=== PATIENT | female | born 1975 | race Caucasian/White ===

== ENCOUNTER 2019-04-13 16:37 | Emergency (ER) | payer OTHER, SELFPAY | END 2019-04-13 16:40 | disposition left against medical advice (07) | LOC: ANHED 05-07 10:14 | PROVIDERS: Emergency Provider Nurse Practitioner Family; PCP Family Medicine | DX: Z53.21 Procedure and treatment not carried out due to patient leaving prior to being seen by health care provider (principal) | CPT/HCPCS: 99199 ==

== ENCOUNTER → 2019-12-18 15:48 | Outpatient (CLI) | payer OTHER, SELFPAY ==
--- NOTE | ~2019-12-18 | MM_ITS ---
EXAMINATION: MM screening [facility] HISTORY: Screening TECHNIQUE: Craniocaudal and mediolateral oblique 3-D tomosynthesis images were obtained and synthetic 2-D images were generated. CAD analysis was submitted and interpreted. COMPARISON: Comparison to multiple prior studies sequentially, with oldest reviewed study dated 08/04. BREAST PARENCHYMAL COMPOSITION: The breasts are heterogeneously dense, which may obscure small masses . FINDINGS: There is no evidence of suspicious mass, calcification, or architectural distortion to sugg est malignancy in either breast. There has been no suspicious interval change. IMPRESSION: 1. No mammographic evidence of malignancy. 2. Recommend routine screening mammography in one year. BI-RADS Category 1: Negative Reviewed, dictated and finalized at location A.
== END ==
PROVIDERS: Visit Provider Obstetrics & Gynecology
DX: Z12.31 Encounter for screening mammogram for malignant neoplasm of breast (principal)
CPT/HCPCS: 77063; 77067

== ENCOUNTER → 2021-01-23 15:08 | Outpatient (CLI) | payer OTHER, SELFPAY ==
--- NOTE | ~2021-01-23 | MM_ITS ---
EXAMINATION: MM screening [facility] HISTORY: Screening TECHNIQUE: Craniocaudal and mediolateral oblique 3-D tomosynthesis images were obtained and synthetic 2-D images were generated. CAD analysis was submitted and interpreted. COMPARISON: Comparison to multiple prior studies sequentially, with oldest reviewed study dated 08/04. BREAST PARENCHYMAL COMPOSITION: The breasts are heterogeneously dense, which may obscure small masses . FINDINGS: There is no evidence of suspicious mass, calcification, or architectural distortion to sugg est malignancy in either breast. There has been no suspicious interval change. IMPRESSION: 1. No mammographic evidence of malignancy. 2. Recommend routine screening mammography in one year. BI-RADS Category 1: Negative Reviewed, dictated and finalized at location A.
== END ==
PROVIDERS: PCP Family Medicine; Visit Provider Obstetrics & Gynecology
DX: Z12.31 Encounter for screening mammogram for malignant neoplasm of breast (principal)
CPT/HCPCS: 77063; 77067

== ENCOUNTER → 2022-11-25 14:28 | Outpatient (CLI) | payer OTHER, SELFPAY ==
--- NOTE | ~2022-11-25 | MM_ITS ---
EXAMINATION: MM screening [facility] HISTORY: Screening TECHNIQUE: Craniocaudal and mediolateral oblique 3-D tomosynthesis images were obtained and synthetic 2-D images were generated. CAD analysis was submitted and interpreted. COMPARISON: Comparison to multiple prior studies sequentially, with oldest reviewed study dated 08/04. BREAST PARENCHYMAL COMPOSITION: The breasts are heterogeneously dense, which may obscure small masses . FINDINGS: There is a partially obscured mass in the upper outer quadrant of the left breast. There is no evidence for malignancy in the right breast. IMPRESSION: 1. Partially obscured mass in the upper outer quadrant of the left breast. 2. Routine yearly screening mammogram and regular clinical breast examination are recommended. BI-RADS Category 2: Benign finding(s). Reviewed, dictated and finalized at location A. IMPRESSION: 1. Partially obscured mass in the upper outer quadrant of the left breast. 2. Routine yearly screening mammogram and regular clinical breast examination a re recommended. BI-RADS Category 2: Benign finding(s).
== END ==
PROVIDERS: PCP Obstetrics & Gynecology; Visit Provider Obstetrics & Gynecology
DX: Z12.31 Encounter for screening mammogram for malignant neoplasm of breast (principal); N63.21 Unspecified lump in the left breast, upper outer quadrant
CPT/HCPCS: 77063; 77067

== ENCOUNTER 2023-04-22 08:30 | Emergency (ER) | payer OTHER, SELFPAY ==
--- NOTE | 2023-04-22 08:40 | ED.FEMALEGU ---
HPI - Female Genitourinary General Chief complaint: Urogenital-Female Stated complaint: urinary issue Time Seen by Provider: 04/22/23 09:16 Source: patient and RN notes reviewed Mode of arrival: ambulatory Limitations: no limitations History of Present Illness HPI Narrative: 47-year-old female presents concern for frequency, urgency, suprapubic pressure, low back pain, nausea, chills that started yesterday. She reports she has to have history of UTIs when she was younger but has not had 1 for a while. MD elicited complaint: UTI Related Data Allergies Allergy/AdvReac Type Severity Reaction Status Date / Time No Known Allergies Allergy Verified 04/22/23 08:57 Review of Systems Review of Systems: CONSTITUTIONAL: Denies malaise, sweats, or fever. Reports chills CARDIOVASCULAR: Denies chest pain, palpitations, or edema. RESPIRATORY: Denies cough or dyspnea. GASTROINTESTINAL: Denies abdominal pain, vomiting, diarrhea. Reports nausea GENITOURINARY: Reports dysuria, frequency, urgency, suprapubic pressure. Denies flank pain or hematuria. SKIN: Denies rash or itching. MUSCULOSKELETAL: Reports low back pain. Denies myalgia. All systems reviewed & are unremarkable except as noted in HPI and below PMFSH Past Medical History Medical History Abnormal Pap smear of cervix 2002 colpo benign 06/02/2048 [facility] hpv negative Screening mammogram, encounter for Vaginal delivery (10/27/04) Surgical History Surgical History History of 10/08/08 primary c/s--breech presentation History of colposcopy with cervical biopsy (12/28/01) benign Family History Family History Father Hypertension Social History Social History Smoking status: Never smoker Second hand tobacco smoke exposure: No Alcohol intake: never Substance use: never Substance use type: does not use Living arrangements: other Additional living arrangements comments: Occupation/Education: occupation Additional occupation/education comments: teacher Gender identity (if verbalized by the patient): Female Sexual Orientation (if Verbalized by the Patient): Straight or Heterosexual Comments At time of signature, agree with nursing past medical, surgical, social and family history. There is no relevant family history pertinent to the presenting complaint Exam Narrative: GENERAL: Well-appearing, well-nourished, and in no acute distress. HEAD: Normocephalic. EYES: PERRLA, conjunctivae clear. NECK: Supple. No lymphadenopathy CHEST: Clear to auscultation. No respiratory distress. HEART: Regular rate and rhythm. ABDOMEN: Soft, nontender upon palpation, nondistended, normal active bowel sounds, no palpable or pulsatile masses, no guarding. No CVA tenderness SKIN: Warm, dry, no rash. NEURO: Alert and oriented x3. PSYCH: Normal mood and affect Course Course Emergency Course: Patient is aware of diagnosis, understands and agrees to treatment plan. Anticipatory guidance given. Patient agrees to follow-up as directed and is aware of reasons to seek care at the emergency department. Portions of this record may have been created with voice recognition software Level of Care: Express Care Visit Vital Signs Vital signs: Reviewed. MDM - Female Genitourinary MDM Narrative Medical decision making narrative: Exam findings and UA show no acute concerns or changes; patient is non-toxic appearing and is in no distress. Patient is appropriate for outpatient treatment and follow-up. Differential Diagnosis Differential diagnosis: Likely urinary tract infection and cystitis Critical Care Time Critical Care Time Critical Care Time: No Discharge Plan Discharge Clinical Impression: Urinary tract infection
[2023-04-22 08:55] VITALS: BP 108/72; PULSE 104; RESP 16; TEMP 37.3; O2SAT 100
== END 2023-04-22 09:29 | disposition home or self-care (01) ==
PROVIDERS: Emergency Provider Nurse Practitioner; PCP Obstetrics & Gynecology
DX: N39.0 Urinary tract infection, site not specified (principal); B95.2 Enterococcus as the cause of diseases classified elsewhere
CPT/HCPCS: 81003; 87086; 87147; 87181; 87186; 99213; G0463

== ENCOUNTER 2023-07-24 10:50 | Emergency (ER) | payer OTHER, SELFPAY ==
[2023-07-24 11:14] VITALS: BP 113/69; PULSE 74; RESP 16; TEMP 36.7; O2SAT 100
--- NOTE | 2023-07-24 11:58 | ED.FEMALEGU ---
HPI - Female Genitourinary General Chief complaint: Urogenital-Female Stated complaint: UTI Time Seen by Provider: 07/24/23 11:54 Source: patient and RN notes reviewed Mode of arrival: ambulatory Limitations: no limitations History of Present Illness HPI Narrative: Patient presents today complaining of dysuria, frequency, and lower abdominal pressure. States symptoms woke her up last night and have been persisting today. She purchased an [id number] UTI test this morning and states it was positive. No recent antibiotic use. Related Data Allergies Allergy/AdvReac Type Severity Reaction Status Date / Time No Known Allergies Allergy Verified 07/24/23 11:35 Review of Systems Review of Systems: CONSTITUTIONAL: Denies body aches, fever, chills, or sweats. EYES: Denies visual changes, redness, or discharge. ENT: Denies rhinorrhea, congestion, sore throat, or otalgia. CARDIOVASCULAR: Denies chest pain, palpitations, or edema. RESPIRATORY: Denies cough or dyspnea. GASTROINTESTINAL: Denies abdominal pain, nausea, vomiting, or diarrhea. GENITOURINARY: Denies hematuria.+ dysuria, frequency, lower abdominal pressure SKIN: Denies rash, itching, or wounds. MUSCULOSKELETAL: Denies back pain, joint pain, or myalgia. NEUROLOGIC: Denies headache, numbness, tingling, or weakness. PSYCH: Denies depression or anxiety. [facility] Past Medical History Medical History Abnormal Pap smear of cervix 2001 colpo benign 06/02/2048 [facility] hpv negative Screening mammogram, encounter for Vaginal delivery (10/27/04) Surgical History Surgical History History of 10/08/08 primary c/s--breech presentation History of colposcopy with cervical biopsy (12/28/01) benign Family History Family History Father Hypertension Social History Social History Smoking status: Never smoker Second hand tobacco smoke exposure: No Alcohol intake: never Substance use: never Substance use type: does not use Living arrangements: other Additional living arrangements comments: Occupation/Education: occupation Additional occupation/education comments: teacher Gender identity (if verbalized by the patient): Female Sexual Orientation (if Verbalized by the Patient): Straight or Heterosexual Comments At time of signature, I have reviewed and agree with nursing past medical, surgical, social and family history unless otherwise noted. Please see nursing chart for further information. There is no relevant family history pertinent to the presenting complaint Exam Narrative: GENERAL: Well-appearing, well-nourished, and in no acute distress. HEAD: Normocephalic, atraumatic. EYES: EOMI. No redness or drainage. Conjunctivae normal. ENT: Mucous membranes pink and moist. NECK: Normal AROM. CHEST: No respiratory distress. Clear to auscultation. HEART: Regular rate and rhythm. No murmur appreciated. ABDOMEN: Soft, nondistended, normal active bowel sounds.+ lower abdominal tenderness.-CVAT EXTREMITIES: Normal range of motion. No edema. SKIN: Warm, dry, no rash. Capillary refill normal. Normal skin turgor. NEURO: No focal deficits. Alert and oriented x3. Gait steady. PSYCH: Normal affect. No signs of depression or anxiety. Course Course Level of Care: Express Care Visit Vital Signs Vital signs: Vital Signs Temperature 98.1 F 07/24/23 11:14 Pulse Rate 74 07/24/23 11:14 Respiratory Rate 16 07/24/23 11:14 Blood Pressure 113/69 07/24/23 11:14 Pulse Oximetry 100 07/24/23 11:14 Oxygen Delivery Room Air 07/24/23 11:14 Temperature 98.1 F 07/24/23 11:14 Pulse Rate 74 07/24/23 11:14 Respiratory Rate 16 07/24/23 11:14 Blood Pressure 113/69 07/24/23 1
== END 2023-07-24 12:12 | disposition home or self-care (01) ==
PROVIDERS: Emergency Provider Nurse Practitioner; PCP Family Medicine
DX: N30.00 Acute cystitis without hematuria (principal)
CPT/HCPCS: 81003; 87086; 99213; G0463

== ENCOUNTER 2023-10-01 09:06 | Emergency (ER) | payer OTHER, SELFPAY ==
--- NOTE | 2023-10-01 09:12 | ED.FEMALEGU ---
HPI - Female Genitourinary General Chief complaint: Urogenital-Female Stated complaint: UTI Time Seen by Provider: 10/01/23 09:13 Source: patient, RN notes reviewed and old records reviewed Mode of arrival: ambulatory Limitations: no limitations History of Present Illness HPI Narrative: 48-year-old female presents to the [facility] with a 2 day history of frequency, urgency and burning with urination. For the last several months has had intermittent symptoms. States that she tried hydrating and the symptoms and burning cap getting worse. Has taken Tylenol. No CVA tenderness S. Denies abdominal pain. Denies fevers, nausea or vomiting Onset (ago): day(s) (2) Related Data Home Medications Medication Instructions Recorded Confirmed norgestimate-ethinyl estradiol 1 tablet PO DAILY 10/01/23 10/01/23 0.18 mg/0.215mg/0.25mg-35 mcg(28)tablet Allergies Allergy/AdvReac Type Severity Reaction Status Date / Time No Known Allergies Allergy Verified 10/01/23 09:07 Review of Systems Review of Systems: All systems reviewed & are unremarkable except as noted in HPI and below Constitutional: Constitutional: Reports no additional constitutional complaints Eyes: Eyes: Reports no additional eye complaints ENT: Reports system reviewed and no additional complaints, except as documented Cardiovascular: Cardiovascular: Reports no additional cardiovascular complaints, Denies chest pain and Denies dyspnea Respiratory: Respiratory: Reports no additional respiratory complaints, Denies chest congestion, Denies cough and Denies dyspnea Gastrointestinal: Gastrointestinal: Reports no additional gastrointestinal complaints, Denies abdominal pain, Denies nausea and Denies vomiting Genitourinary: Genitourinary: Reports as per HPI and Reports dysuria Musculoskeletal: Musculoskeletal: Reports no additional musculoskeletal complaints Integumentary/Breasts: Skin/Breast: Reports system reviewed and no additional complaints, except as docu Neurologic: Reports system reviewed and no additional complaints, except as documented Psychiatric: Psychiatric: Reports no additional psychiatric complaints Allergic/Immunologic: Allergic/Immunologic: Reports no additional allergic/immunologic complaints PMFSH Past Medical History Medical History Abnormal Pap smear of cervix 2002 colpo benign 06/02/2048 [facility] hpv negative Screening mammogram, encounter for Vaginal delivery (10/27/04) Surgical History Surgical History History of 10/08/08 primary c/s--breech presentation History of colposcopy with cervical biopsy (12/28/01) benign Family History Family History Father Hypertension Social History Social History Smoking status: Never smoker Second hand tobacco smoke exposure: No Alcohol intake: never Substance use: never Substance use type: does not use Living arrangements: other Additional living arrangements comments: Occupation/Education: occupation Additional occupation/education comments: teacher Gender identity (if verbalized by the patient): Female Sexual Orientation (if Verbalized by the Patient): Straight or Heterosexual Comments At the time of my signature, I reviewed and agree with the nursing past medical, surgical, social, and family history. There is no relevant family history pertinent to the patient complaint. Exam Const: General: cooperative, healthy appearing, comfortable, no acute distress, well developed, alert and well nourished Nutritional Appearance: well nourished Orientation/consciousness: patient oriented x3 Limitations: no limitations HENMT: Head: normal to inspection Ears: hearing grossly normal bilaterally and external ears normal Face/Nose/Sinus: N
[2023-10-01 09:15] VITALS: BP 125/63; PULSE 84; RESP 16; TEMP 36.5; O2SAT 100
== END 2023-10-01 09:40 | disposition home or self-care (01) ==
PROVIDERS: Emergency Provider Nurse Practitioner; PCP Family Medicine
DX: N30.01 Acute cystitis with hematuria (principal); B96.20 Unspecified Escherichia coli [E. coli] as the cause of diseases classified elsewhere
CPT/HCPCS: 81003; 87077; 87086; 87088; 87186; 99213; G0463

== ENCOUNTER 2024-01-20 15:33 | Outpatient (CLI) | payer OTHER, SELFPAY ==
--- NOTE | ~2024-01-20 | MM_ITS ---
EXAMINATION: MM screening [facility] BI w [facility] HISTORY: Screening mammogram TECHNIQUE: Craniocaudal and mediolateral oblique 3-D tomosynthesis images were obtained and synthetic 2-D images were generated. CAD analysis was submitted and interpreted. COMPARISON: 11/25/2022, 01/23/2021, 12/18/2019, 08/09/2018 BREAST PARENCHYMAL COMPOSITION:Dense: The breasts are heterogeneously dense, which may obscure small masses. FINDINGS: Stable probable partially obscured upper, outer left breast mass. No suspicious mass, calci fication, or architectural distortion are identified in either breast to suggest malignancy. There edwards s been no suspicious interval change. IMPRESSION: No mammographic evidence of malignancy. Recommend routine screening mammography in one year. BI-RADS Category 2: Benign finding(s). Reviewed, dictated and finalized at location .
== END 2024-01-20 15:34 | disposition home or self-care (01) ==
LOC: MICIMG 15:33
PROVIDERS: PCP Obstetrics & Gynecology; Visit Provider Obstetrics & Gynecology
DX: Z12.31 Encounter for screening mammogram for malignant neoplasm of breast (principal)
CPT/HCPCS: 77063; 77067

== ENCOUNTER 2025-05-01 09:46 | Outpatient (CLI) | payer OTHER, SELFPAY ==
--- NOTE | ~2025-05-01 | MM_ITS ---
EXAMINATION: MM screening kylah BI w amando HISTORY: Screening TECHNIQUE: Craniocaudal and mediolateral oblique 3-D tomosynthesis images were obtained and synthetic 2-D images were generated. CAD analysis was submitted and interpreted. COMPARISON: Comparison to multiple prior studies sequentially, with oldest reviewed study dated 08/04/2017. BREAST PARENCHYMAL COMPOSITION: Dense: The breasts are heterogeneously dense, which may obscure small masses FINDINGS: There is no evidence of suspicious mass, calcification, or architectural distortion to suggest malignancy in either breast. There has been no suspicious interval change. IMPRESSION: 1. No mammographic evidence of malignancy. 2. Recommend routine screening mammography in one year. BI-RADS Category 1: Negative Reviewed, dictated and finalized at location O. T [facility]OLOGY [facility]ER
--- OUTSIDE RECORDS SUMMARY | 2025-05-01 09:50 | XMS_ITS | Data Portability ---
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 Plan of Treatment Reminders Order Date Submit Date Provider Last Modified By Organization Details Last Modified Time Details Appointments None recorded. Lab influenza virus A + B + SARS-CoV-2 (COVID19) Ag panel, rapid IA, upper respiratory specimen 2024 025 [email or web address] [facility], [address] [place] [address], [id number], 5 11:27:06 urinalysis, dipstick, auto 2024 025 [email or web address] [facility], [address] [place] [address], [phone], 5 11:27:06 culture, urine 2024 025 [facility], [address] [place] [address], [address], 5 08:04:56 Referral None recorded. Procedures None recorded. Surgeries None recorded. Imaging None recorded. Medication Orders ondansetron 8 mg disintegrat ing tablet 2024 025 [email or web address] [id number] [address], [address], At [address] [place] [address], [address], 11:27:06 Patient TargetsNo targets recorded. Patient Instructions Encounter Date Encounter Id Patient Instructions Last Modified By Organization Details Last Modified Time 10/12/2024 [id number] A healthy lifestyle: care instructions Not available 10/12/2024 11:27:06 abdominal pain: care instructions s Not available 10/12/2024 11:27:06 Thank you for visiting [facility]. We may be calling you to review your lab results or schedule a follow up appointment. The call will be through an automated system which asks you to press a natarajan to speak with one of our agents. Please be on the lookout for this call and listen to the message in its entirety. You may also view your lab results using the [employer] kassidy, available in the Kassidy Store and [employer]. First-time kassidy users will need to create an account; please note you l l need to select a login and password for the kassidy versus just using your patient portal login. Your lab results will be posted to the [employer] kassidy as soon as they r e available. Need a note to excuse you from work or school? You can submit a request online at [email or web address] We will respond to your request within 2 business days. If you have any questions regarding your visit, our Aftercare department can be reached at [phone]. Our hours are Tuesday from 8 am 11 pm or Tuesday/Tuesday from 9a 8p. Diarrhea Your Care Instructions Diarrhea is loose, watery stools (bowel movements). The exact cause is often hard to find. Sometimes diarrhea is your body's way of getting rid of what caused an upset stomach. Viruses, food poisoning, and many medicines can cause diarrhea. Some people get diarrhea in response to emotional stress, anxiety, or certain foods. Almost everyone has diarrhea now and then. It usually isn't serious, and your stools will return to normal soon. The important thing to do is replace the fluids you have lost, so you can prevent dehydration. The doctor has checked you carefully, but problems can develop later. If you notice any problems or new symptoms, get medical treatment right away. Follow-up care is a natarajan part of your treatment and safety. Be sure to make and go to all appointments, and call your doctor if you are having problems. It's also a good idea to know your test results and keep a list of the medicines you take. How can you care for yourself at home? Watch for signs of dehydration, which means your body has lost too much water. Dehydration is a serious condition and should be treated right away. Signs of dehydration are: Increasing thirst and dry eyes and mouth. Feeling faint or lightheaded. Darker urine, and a smaller amount of urine than normal. To prevent dehydration, drink plenty of fluids, enough so that your urine is light yellow or clear like water. Choose water and other caffeine-free clear liquids until you feel better. If you have kidney, heart, or liver disease and have to limit fluids, talk with your doctor before you increase the amount of fluids you drink. Begin eating small amounts of mild foods the next day, if you feel like it. Try yogurt that has live cultures of Lactobacillus. (Check the label.) Avoid spicy foods, fruits, alcohol, and caffeine until 48 hours after all symptoms are gone. Avoid chewing gum that contains sorbitol. Avoid dairy products (except for yogurt with Lactobacillus) while you have diarrhea and for 3 days after symptoms are gone. The doctor may recommend that you take qfqk-qhb-dxfstgg medicine, such as loperamide (Imodium), if you still have diarrhea after 6 hours. Read and follow all instructions on the label. Do not use this medicine if you have bloody diarrhea, a high fever, or other signs of serious illness. Call your doctor if you think you are having a problem with your medicine. When should you call for help? Call 911 anytime you think you may need emergency care. For example, call if: You passed out (lost consciousness). Your stools are maroon or very bloody. Call your doctor now or seek immediate medical care if: You are dizzy or lightheaded, or you feel like you may faint. Your stools are black and look like tar, or they have streaks of blood. You have new or worse belly pain. You have symptoms of dehydration, such as: Dry eyes and a dry mouth. Passing only a little dark urine. Feeling thirstier than usual. You have a new or higher fever. Watch closely for changes in your health, and be sure to contact your doctor if: Your diarrhea is getting worse. You see pus in the diarrhea. You are not getting better after 2 days (48 hours). Abdominal Pain Abdominal pain has many possible causes. Some aren''t serious and get better on their own in a few days. Others need more testing and treatment. If your pain continues or gets worse, you need to be rechecked and may need more tests to find out what is wrong. You may need surgery to correct the problem. Don''t ignore new symptoms, such as fever, nausea and vomiting, urination problems, pain that gets worse, and dizziness. These may be signs of a more serious problem. Your doctor may have recommended a follow-up visit in the next 8 to 12 hours. If you are not getting better, you may need more tests or treatment. The doctor has checked you carefully, but problems can develop later. If you notice any problems or new symptoms, get medical treatment right away. Follow-up care is a natarajan part of your treatment and safety. Be sure to make and go to all appointments, and call your doctor if you are having problems. It''s also a good idea to know your test results and keep a list of the medicines you take. How can you care for yourself at home? Rest until you feel better. To prevent dehydration, drink plenty of fluids, enough so that your urine is light yellow or clear like water. Choose water and other caffeine-free clear liquids until you feel better. If you have kidney, heart, or liver disease and have to limit fluids, talk with your doctor before you increase the amount of fluids you drink. If your stomach is upset, eat mild foods, such as rice, dry toast or crackers, bananas, and applesauce. Try eating several small meals instead of two or three large ones. Wait until 48 hours after all symptoms have gone away before you have spicy foods, alcohol, and drinks that contain caffeine. Do not eat foods that are high in fat. Avoid anti-inflammatory medicines such as aspirin, ibuprofen (Advil, Motrin), and naproxen (Aleve). These can cause stomach upset. Talk to your doctor if you take daily aspirin for another health problem. When should you call for help? Call 911 anytime you think you may need emergency care. For example, call if: You passed out (lost consciousness). You pass maroon or very bloody stools. You vomit blood or what looks like coffee grounds. You have new, severe belly pain. Call your doctor now or seek immediate medical care if: Your pain gets worse, especially if it becomes focused in one area of your belly. You have a new or higher fever. Your stools are black and look like tar, or they have streaks of blood. You have unexpected vaginal bleeding. You have symptoms of a urinary tract infection. These may include: Pain when you urinate. Urinating more often than usual. Blood in your urine. You are dizzy or lightheaded, or you feel like you may faint. Watch closely for changes in your health, and be sure to contact your doctor if: You are not getting better after 1 day (24 hours). [email or web address] Not available 10/12/2024 10:14:45 Reason for Referral None Reported. Results Created Date Observation Date Name Description Value Unit Range Abnormal Flag Note LastModifiedBy Organization Detail LastModifiedTime 10/13/19 25 10/15/2024 CULTU RE URINE final MICROB IOLOGY RESULT S abnormal Cultu re Urine Final Sourc e: VOIDE D/CHRIS AN CATCH Repor t Date/ Time: 10/15 8:04A M Colle ction Date/ Time: 10/12 4:22P M 1630 Clini steph Infor matio n Type of Patie nt Non-P regna nt Femal e Sourc e of urine cultu re VOIDE D/CHRIS AN CATCH Penic illin Aller gy? N Strep tococ cus beta group - B Organ ism Estim ation Urine 80,00 0 col/m L [place] te Obser vatio n Penic illin and ampic illin are drugs of choic e for treat ment of beta- hemol ytic strep tococ steph infec tions . Patrick ptibi lity testi ng of penic illin s and other beta- lacta ms appro jossie by the [place] Food and Drug Admin istra tion for treat ment of beta- hemol ytic strep tococ steph infec tions is not requi red unles s a drug aller gy has been indic ated. Not Available [facility] [address], [place], [address], 10/15/2024 08:04:56 10/13/19 25 10/12/2024 influ rosio virus A + B + SARS- CoV-2 (COVI D19) Ag panel , rapid IA, upper respi rator y speci men Flu A NEGATI VE Not Available [address], [address], 10/12/2024 09:11:30 10/13/19 25 10/12/2024 influ rosio virus A + B + SARS- CoV-2 (COVI D19) Ag panel , rapid IA, upper respi rator y speci men Flu B NEGATI VE Not Available [address], [address], 10/12/2024 09:11:30 10/13/19 25 10/12/2024 influ rosio virus A + B + SARS- CoV-2 (COVI D19) Ag panel , rapid IA, upper respi rator y speci men Covid-19 NEGATI VE Not Available [address], [address], 10/12/2024 09:11:30 10/13/19 25 10/12/2024 urina lysis , dipst ick, auto BLOOD NEGATI VE - (aniyah/u L, ref. neg) Not Available [address], [address], 10/12/2024 09:11:18 10/13/19 25 10/12/2024 urina lysis , dipst ick, auto UROBILINOGEN NORMAL - (mg/dL , ref. normal ) Not Available [address], [address], 10/12/2024 09:11:18 10/13/19 25 10/12/2024 urina lysis , dipst ick, auto BILIRUBIN NEGATI VE - (mg/dL , ref. neg) Not Available [address], [address], 10/12/2024 09:11:18 10/13/19 25 10/12/2024 urina lysis , dipst ick, auto PROTEIN NEGATI VE - (mg/dL , ref. neg) Not Available [address], [address], 10/12/2024 09:11:18 10/13/19 25 10/12/2024 urina lysis , dipst ick, auto NITRITES NEGATI VE - (ref. neg) Not Available [address], [address], 10/12/2024 09:11:18 10/13/19 25 10/12/2024 urina lysis , dipst ick, auto KETONES 100 - (mg/dL , ref. neg) Not Available [address], [address], 10/12/2024 09:11:18 10/13/1910/12/2024 urina lysis , dipst ick, auto GLUCOSE NEGATI VE - (mg/dL , ref. neg) Not Available [address], [address], 10/12/2024 09:11:18 10/13/1910/12/2024 urina lysis , dipst ick, auto pH 5 - (ref. 5.0-7. 0) Not Available [address], [address], 10/12/2024 09:11:18 10/13/19 25 10/12/2024 urina lysis , dipst ick, auto SPECIFIC GRAVITY 1.020 (ref. 1.010- 1.030) Not Available [facility] [address], [address], 10/12/2024 09:11:18 10/13/1910/12/2024 urina lysis , dipst ick, auto LEUKOCYTES 500 - (Deana/d L, ref. neg) Not Available [address], [address], 10/12/2024 09:11:18 Result Notes None recorded. Problems No Known Problems Medical Equipment None Reported. Allergies No known drug allergies Medications Name Sig Start Date Stop Date Status Note LastModified by Organization Details LastModified Time ondansetron 8 mg disintegrati ng tablet Place 1 tablet every 8 hours by translingua l route as needed for 7 days. 2024 active Not Available Not Available Not Avai lable Vitals Date Recorded Heart rate Body temperature Respiratory rate Oxygen saturation Body height Body mass index (BMI) Body weight Systolic And Diastolic Provider Name and Address Organization Details Last Updated DateTime 71 /min 97.9 [degF] 16 /min 99 % 162.56 cm 19.7 kg/m2 09764.1 2 g 128/80 mm[Hg] Rupali KELLY [facility] 08:54:24 Social History Question Answer Notes LastModified by [employer] Details LastModified Time Tobacco Smoking Status Never Smoker LETICIA Cavazos [facility] 10/12/2024 09:03:55 What Was The Date Of Your Most Recent Tobacco Screening? 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 Family History Relationship Description Onset Age of this Age Resolved Age Notes LastModified by Organization Details LastModified Time Father No current problems or disability [email or web address] Not available 10/12 09:03:47 Mother No current problems or disability [email or web address] Not available 10/12 09:03:48 Medical History No medical history recorded. Gynecological HistoryNo gynecological history recorded. Obstetrics History GPAL:G 0 P 0 0 0 0 Past Encounters Encounter ID Performer Location Encounter Start Date Encounter Closed Date Diagnosis/Indication Diagnosis SNOMED-CT Code Diagnosis ICD10 Code Diagnosis IMO Codes Diagnosis Note [id number] Aliza Chandra MD [facility] [place] [address] [address] 10/12/2024 08:14:55 10/12/2024 09:22:06 Diarrhea 56185799 R19.7 [id number] Abdominal discomfort 433 80888 R10.9 290345 Nausea 938924842 R11.0 50668 Health Concerns Section Related Observation LastModified by Organization Detai ls LastModified Time None Recorded Concern Status LastModified by Organization Details LastModified Time None Recorded Advance Directives Directive None Recorded Payers Insurance Date Sequence Insurance Name Policy Number Policy Dejesus Covered Member ID Dejesus Member ID Guarantor Name 10/12/2024 1 [facility] [id number] Javier Cooley [id number] Javier Cooley Notes Date Note Type Note Provider Name and Address Organization Details Recorded Time 10/12/2024 text/html Diarrhea (w/o vomiting) - cmdReported by PatientHPIFor patient presents with, patient reportsdiarrhea(wit hout vomiting) which began 4-6 days ago. For pertinent findings, patient reports(+) nauseaand(+) [place] fever[place]no vomiting,no constipation,no bloody diarrhea,no anal pain,no recent antibiotic use, andno sick contacts. For menstrual history, patient reportsnot menstruating. 49yo F p/w c/o diarrhea starting 4 days ago. Pt reports that she hasn't been eating fast food for. Pt notes that 4 days ago she ate fast food and started getting diarrhea and abdominal cramps. Pt reports that 4 days ago the pain was towards the lower middle of her abdomen. Pt reports that as of yesterday the abdominal pain started to radiate towards the right side of her abdomen, towards the right lower side of her back. Pt reports that the pain is worse when she is walking around. Pt reports that the pain is better when she is seated or rested. Pt reports taking Zofran 3am this morning for nausea she was having but it hasn't helped her. Pt reports 1 episode of diarrhea for the first 3 days of her symptoms. Pt reports yesterday she was having 6x episodes of diarrhea. Pt reports travel from [place] to [place]. Pt last episode of diarrhea at 5am. Pt reports she has been eating a clean diet no fatty or greasy foods for 5 months. Luna JOY [address] [place] [address],[address], [place], [address], [facility] - .[facility] 10/12/2024 10:15:58 OBGyn Episode No OBEpisode recorded.
== END 2025-05-01 09:47 | disposition home or self-care (01) ==
LOC: ANHFOHIMG 09:48
PROVIDERS: PCP Family Medicine; Visit Provider Obstetrics & Gynecology
DX: Z12.31 Encounter for screening mammogram for malignant neoplasm of breast (principal)
CPT/HCPCS: 77063; 77067